=== PATIENT | male | born 1975 | race Caucasian/White ===

== ENCOUNTER 2020-12-13 13:39 | Emergency (ER) | payer OTHER ==
[2020-12-13 15:08] LABS: BASOPHIL 0.8 % (0-2); EOSINOPHIL 0.8 % (0-5); HCT 49.1 % (42.0-52.0); HGB 16.8 g/dl (13.2-18.0); LYMPHOCYTE 23.6 % (15-48); MCH 30.7 pg (25.0-31.0); MCHC 34.2 g/dL (32.0-36.0); MCV 89.8 fL (78.0-100.0); MONOCYTE 14.1 % (0-12); MPV 9.2 fL (6.0-9.5); NEUTROPHIL 60.2 % (41-80); NRBC 0; PLT 252 K/uL (150-400); RBC 5.47 M/uL (4.70-6.00); RDW 12.5 % (11.5-14.0); WBC 6.3 K/uL (4.0-10.5)
[2020-12-13 15:27] LABS: BUN/CREAT RATIO (CALC) 16.9 RATIO; CREATININE 0.71 mg/dL (0.67-1.17); POTASSIUM 3.7 mmol/L (3.5-5.1)
== END 2020-12-13 16:05 | disposition home or self-care (01) ==
LOC: FER 13:39
PROVIDERS: Emergency Medicine
DX: U07.1 COVID-19 (principal); E11.9 Type 2 diabetes mellitus without complications
CPT/HCPCS: 36415; 71045; 80048; 85025; U0002